=== PATIENT | male | born 1950 | race Caucasian/White ===

== ENCOUNTER → 2017-06-26 | Outpatient (CLI) | payer OTHER | LOC: MHCPAIN 09:36 | DX: G89.29 Other chronic pain (principal); M47.27 Other spondylosis with radiculopathy, lumbosacral region; R51 Headache; M54.81 Occipital neuralgia; F17.200 Nicotine dependence, unspecified, uncomplicated | CPT/HCPCS: G0463 ==

== ENCOUNTER → 2017-08-01 | Outpatient (CLI) | payer OTHER | LOC: MHCPAIN 08:02 | DX: M50.322 Other cervical disc degeneration at C5-C6 level (principal) ==

== ENCOUNTER → 2017-08-02 | Outpatient (CLI) | payer OTHER | LOC: MHCPAIN 07:57 | DX: G89.29 Other chronic pain (principal); M50.122 Cervical disc disorder at C5-C6 level with radiculopathy; R51 Headache; F17.200 Nicotine dependence, unspecified, uncomplicated | CPT/HCPCS: G0463 ==

== ENCOUNTER → 2017-08-29 | Outpatient (CLI) | payer OTHER | LOC: MHCPAIN 07:46 | DX: M50.30 Other cervical disc degeneration, unspecified cervical region (principal) ==

== ENCOUNTER → 2017-08-30 | Outpatient (CLI) | payer OTHER | LOC: MHCPAIN 08:52 | DX: G89.29 Other chronic pain (principal); M50.90 Cervical disc disorder, unspecified, unspecified cervical region; M54.81 Occipital neuralgia; R51 Headache | CPT/HCPCS: G0463 ==

== ENCOUNTER → 2017-09-23 | Outpatient (CLI) | payer OTHER | LOC: MHCPAIN 12:48 | DX: G89.29 Other chronic pain (principal); M50.10 Cervical disc disorder with radiculopathy, unspecified cervical region; R51 Headache; F17.200 Nicotine dependence, unspecified, uncomplicated | CPT/HCPCS: G0463 ==

== ENCOUNTER → 2017-09-26 | Outpatient (CLI) | payer OTHER | LOC: MHCPAIN 08:16 | DX: M50.31 Other cervical disc degeneration, high cervical region (principal); M46.96 Unspecified inflammatory spondylopathy, lumbar region | CPT/HCPCS: J1100; J2250; J3010 ==

== ENCOUNTER → 2017-10-22 | Outpatient (CLI) | payer OTHER | LOC: MHCPAIN 09:01 | DX: G89.29 Other chronic pain (principal); M50.30 Other cervical disc degeneration, unspecified cervical region; M79.2 Neuralgia and neuritis, unspecified; F17.200 Nicotine dependence, unspecified, uncomplicated | CPT/HCPCS: G0463 ==

== ENCOUNTER → 2017-11-15 | Outpatient (CLI) | payer OTHER | LOC: MHCPAIN 08:28 | DX: G89.29 Other chronic pain (principal); M50.30 Other cervical disc degeneration, unspecified cervical region; M48.02 Spinal stenosis, cervical region; F17.200 Nicotine dependence, unspecified, uncomplicated | CPT/HCPCS: G0463 ==

== ENCOUNTER → 2017-11-28 | Outpatient (CLI) | payer OTHER | LOC: MHCPAIN 13:38 | DX: M50.322 Other cervical disc degeneration at C5-C6 level (principal) | CPT/HCPCS: J1100; J2250; J3010; Q9967 ==

== ENCOUNTER → 2017-12-06 | Outpatient (CLI) | payer OTHER | LOC: MHCPAIN 11:36 | DX: G89.29 Other chronic pain (principal); M50.90 Cervical disc disorder, unspecified, unspecified cervical region; M54.12 Radiculopathy, cervical region; R51 Headache | CPT/HCPCS: G0463 ==

== ENCOUNTER → 2018-01-02 | Outpatient (CLI) | payer OTHER | LOC: MHCPAIN 07:51 | DX: G89.29 Other chronic pain (principal); M50.322 Other cervical disc degeneration at C5-C6 level; M46.92 Unspecified inflammatory spondylopathy, cervical region; M54.12 Radiculopathy, cervical region; M54.81 Occipital neuralgia; R51 Headache | CPT/HCPCS: G0463 ==

== ENCOUNTER → 2018-04-08 | Outpatient (CLI) | payer OTHER, MEDICARE | LOC: MHCPAIN 10:02 | DX: G89.29 Other chronic pain (principal); M50.90 Cervical disc disorder, unspecified, unspecified cervical region; M54.12 Radiculopathy, cervical region; M54.81 Occipital neuralgia; R51 Headache | CPT/HCPCS: G0463 ==

== ENCOUNTER → 2018-05-20 | Outpatient (CLI) | payer OTHER, MEDICARE | LOC: MHCPAIN 09:26 | DX: G89.29 Other chronic pain (principal); M50.90 Cervical disc disorder, unspecified, unspecified cervical region; R51 Headache | CPT/HCPCS: G0463 ==

== ENCOUNTER → 2018-05-26 | Outpatient (CLI) | payer OTHER, MEDICARE | LOC: MHCPAIN 10:30 | DX: M54.12 Radiculopathy, cervical region (principal); M50.90 Cervical disc disorder, unspecified, unspecified cervical region ==

== ENCOUNTER → 2019-01-21 | Outpatient (CLI) | payer OTHER, MEDICARE | LOC: MHCPAIN 09:36 | DX: G89.29 Other chronic pain (principal); R51 Headache; M47.812 Spondylosis without myelopathy or radiculopathy, cervical region | CPT/HCPCS: G0463 ==

== ENCOUNTER → 2019-02-26 | Outpatient (CLI) | payer OTHER | LOC: MHCPAIN 07:25 | DX: M47.812 Spondylosis without myelopathy or radiculopathy, cervical region (principal); M54.12 Radiculopathy, cervical region ==

== ENCOUNTER → 2019-03-04 | Outpatient (CLI) | payer OTHER | LOC: MHCPAIN 12:48 | DX: G89.29 Other chronic pain (principal); R51 Headache; M47.812 Spondylosis without myelopathy or radiculopathy, cervical region | CPT/HCPCS: G0463 ==

== ENCOUNTER 2019-03-13 16:52 | Emergency (ER) | payer OTHER ==
[~2019-03-13] VITALS: Ht 180.3 cm; Wt 79.5 kg
[2019-03-13 17:00] VITALS: TEMP 98.3
[2019-03-13] MEDS ORDERED: NEURONTIN400 MG/CAP (21:02)
[2019-03-13] MEDS ORDERED: ZANAFLEX CAPSULE2 MG (21:02)
[2019-03-13] MEDS ORDERED: EFFE25TA (21:02)
[2019-03-13] MEDS ORDERED: COZAAR 25MG25 MG/TAB (21:03)
[2019-03-13] MEDS ORDERED: NORCO 325 MG-51 TAB PO (21:19)
[2019-03-13 21:33] VITALS: BP 193/100; PULSE 81
== END 2019-03-13 21:34 | disposition home or self-care (01) ==
LOC: COL.ER 16:52
DX: S50.01XA Contusion of right elbow, initial encounter (principal); W10.9XXA Fall (on) (from) unspecified stairs and steps, initial encounter; W22.8XXA Striking against or struck by other objects, initial encounter

== ENCOUNTER → 2019-03-26 | Outpatient (CLI) | payer OTHER ==
[~2019-03-26] MED LIST: COZAAR 25MG25 MG/TAB; EFFE25TA; NEURONTIN400 MG/CAP; NORCO 325 MG-51 TAB PO; ZANAFLEX CAPSULE2 MG
== END ==
LOC: MHCPAIN 12:07
DX: M47.812 Spondylosis without myelopathy or radiculopathy, cervical region (principal); M54.12 Radiculopathy, cervical region

== ENCOUNTER → 2019-04-01 | Outpatient (CLI) | payer OTHER, MEDICARE | LOC: MHCPAIN 12:53 | DX: G89.29 Other chronic pain (principal); M47.812 Spondylosis without myelopathy or radiculopathy, cervical region; R51 Headache | CPT/HCPCS: G0463 ==

== ENCOUNTER 2019-04-09 13:40 | Emergency (ER) | payer OTHER, MEDICARE ==
[~2019-04-09] VITALS: Ht 180.3 cm; Wt 90.9 kg
[2019-04-09] MEDS ORDERED: ASPIRIN 81M81 MG/TA2 PO (14:16)
[2019-04-09] MEDS ORDERED: ULTRAM 50MG TAB50 MG PO (14:35)
[2019-04-09 15:02] VITALS: BP 149/68; PULSE 89; TEMP 98.1
== END 2019-04-09 15:04 | disposition home or self-care (01) ==
LOC: COL.ER 13:40
DX: M54.2 Cervicalgia (principal); F43.10 Post-traumatic stress disorder, unspecified; G89.29 Other chronic pain; Z79.82 Long term (current) use of aspirin

== ENCOUNTER → 2019-04-23 | Outpatient (CLI) | payer OTHER, MEDICARE ==
[~2019-04-23] MED LIST changes: +ASPIRIN 81M81 MG/TA2 PO; +ULTRAM 50MG TAB50 MG PO
== END ==
LOC: MHCPAIN 13:20
DX: M47.812 Spondylosis without myelopathy or radiculopathy, cervical region (principal); M54.12 Radiculopathy, cervical region
CPT/HCPCS: J1100; J2250; J3010

== ENCOUNTER → 2019-06-22 | Outpatient (CLI) | payer OTHER, MEDICARE | LOC: MHCPAIN 08:44 | DX: R51 Headache (principal); M47.812 Spondylosis without myelopathy or radiculopathy, cervical region | CPT/HCPCS: G0463 ==

== ENCOUNTER → 2020-11-07 | Outpatient (CLI) | payer OTHER ==
[~2020-11-07] VITALS: Ht 180.3 cm; Wt 98.8 kg
[~2020-11-07] MED LIST changes: +ASPIRIN E.C. 8181 MG PO; +BUPRENORPHINE HC8 MG SL; +CLINORIL 1150 MG/TAB PO; +EFFEXOR 75M75 MG/TAB PO; +HYGROTON 2525 MG/TAB PO; +LIPITOR 40MG TA40 MG PO; +LYRICA 150MG C150 MG PO; +NARCAN4 MG NS; +ONE-A-DAY ESSE1 EACH PO
[2020-11-07 09:08] VITALS: BP 148/80; PULSE 82
[2020-11-07 10:54] VITALS: BP 129/69; PULSE 74
[2020-11-07 11:06] VITALS: BP 130/71; PULSE 74
--- NOTE | 2020-11-07 11:25 | NUR ---
PT IS TAKEN TO [facility] IN WHEELCHAIR AND HANDED OFF TO HIS FRIEND
== END ==
LOC: COL.RAD 08:28
DX: M47.22 Other spondylosis with radiculopathy, cervical region (principal); M48.02 Spinal stenosis, cervical region; M48.03 Spinal stenosis, cervicothoracic region
CPT/HCPCS: J2250; J2704

== ENCOUNTER 2021-07-01 11:21 | Emergency (ER) | payer OTHER ==
[~2021-07-01] VITALS: Ht 180.3 cm; Wt 90.9 kg
[2021-07-01 11:53] VITALS: TEMP 98.6
[2021-07-01 14:49] VITALS: BP 148/87; PULSE 91
== END 2021-07-01 14:50 | disposition home or self-care (01) ==
LOC: COL.ER 11:21
DX: S09.90XA Unspecified injury of head, initial encounter (principal); G89.29 Other chronic pain; M54.2 Cervicalgia; Z87.891 Personal history of nicotine dependence; Z79.899 Other long term (current) drug therapy; W06.XXXA Fall from bed, initial encounter

== ENCOUNTER 2021-08-07 09:54 | Emergency (ER) | payer OTHER, MEDICARE ==
[~2021-08-07] VITALS: Ht 175.3 cm; Wt 88.6 kg
[2021-08-07 10:53] VITALS: TEMP 97.1
[2021-08-07 12:25] VITALS: BP 137/83; PULSE 79
== END 2021-08-07 12:46 | disposition home or self-care (01) ==
LOC: COL.ER 09:54
DX: R51.9 Headache, unspecified (principal); F43.10 Post-traumatic stress disorder, unspecified; Z86.69 Personal history of other diseases of the nervous system and sense organs; Z79.899 Other long term (current) drug therapy
CPT/HCPCS: J1200; J1885; J2765; J3475; J7030